=== PATIENT | female | born 1945 | race Caucasian/White ===

== ENCOUNTER → 2017-01-23 | Outpatient (CLI) | payer BC ==
[~2017-01-23] MED LIST: AGM875 PO; ALL100 PO; CALCTAB5 PO; GFNSR600 PO; NASOCORT; SYN88 PO; [UNRECOGNIZED DRUG - OTHER]
--- NOTE | 2017-01-23 14:58 | MAMMOGRAPHY REPORT ---
BILATERAL DIGITAL SCREENING MAMMOGRAM WITH CAD: 01/23/2017 CLINICAL HISTORY: Routine screening. Patient has no complaints. TECHNIQUE: Current study was also evaluated with a Computer Aided Detection (CAD) system. Bilatera l CC and MLO views were obtained. COMPARISON: Comparison is made to exams dated: 07/04/2013 mammogram - [facility], 03/08/2009, and 12/27/2007. BREAST COMPOSITION: The tissue of both breasts is almost entirely fatty. FINDINGS: No suspicious masses, calcifications, or areas of architectural distortion are noted in e ither breast. There has been no significant interval change compared to prior exams. Scattered bilat eral benign-appearing calcifications are not significantly changed. IMPRESSION: ACR BI-RADS CATEGORY 2: BENIGN There is no mammographic evidence of malignancy. A 1 year screening mammogram is recommended. The p atient will receive written notification of the results. Approximately 10% of breast cancers are not detected with mammography. A negative mammographic repor t should not delay biopsy if a clinically suggestive mass is present. Cait Vogel M.D. ah/:01/23/2017 12:19:02 [employer]: Zahra COVINGTON(Alex)(Chiquis), [facility] letter sent: Normal 1/2 BI-RADS Code: ACR BI-RADS Category 2: Benign
== END | disposition home or self-care (01) ==
LOC: C.MAMM 11:42
PROVIDERS: ATTEND Family Medicine
DX: Z12.31 Encounter for screening mammogram for malignant neoplasm of breast (principal)

== ENCOUNTER → 2017-06-22 | Outpatient (CLI) | payer BC ==
[~2017-06-22] MED LIST changes: +OPTIRAY 320 IV PRN
--- NOTE | 2017-06-22 13:54 | DIAGNOSTIC IMAGING REPORT ---
ABDOMINAL CT WITH AND WITHOUT INTRAVENOUS CONTRAST, RENAL PROTOCOL HISTORY: Follow-up renal lesions. TECHNIQUE: Multiaxial CT images of the abdomen were performed both before and after the intravenous administration of contrast to evaluate the kidneys. COMPARISON STUDY: Abdomen and pelvis CT 04/18/2013. FINDINGS: There are 2 punctate stones within the upper pole the left kidney. No right renal calculi. No hydronephrosis. There again noted two fat containing lesions within the lower pole of the right kidney which measure 2.0 and 0.8 cm. These are consistent with benign angiomyolipomas. Multiple left peripelvic renal cysts remain unchanged. There is a new 1.5 cm left adrenal gland nodule. However, this may also contain macroscopic fat and therefore favors a benign lesion such as a myelolipoma versus an adenoma. The liver, gallbladder, spleen, right adrenal gland, and pancreas are unremarkable. No retroperitoneal lymphadenopathy. The visualized appendix is unremarkable. A few colonic diverticula. No bowel wall thickening or obstruction. IMPRESSION: 1. Stable benign angiomyolipomas within the right kidney. 2. Left-sided nephrolithiasis. No hydronephrosis. 4. A new 1.5 cm left adrenal gland nodule. This is consistent with a benign lesion and may represent a myelolipoma versus adenoma. Electronically signed by: Mamadou Gordon M.D. 06/22/2017 1:52 PM Dictated Date/Time: 06/22/2017 1:45 PM
[2017-06-22 14:53] LABS: ALT/SGPT 19 U/L (12-78); BLOOD UREA NITROGEN 13 mg/dl (7-18); BUN/CREATININE RATIO 20.2 (10-20); CALCIUM 9.2 mg/dl (8.5-10.1); CARBON DIOXIDE 25 mmol/L (21-32); CHLORIDE 107 mmol/L (98-107); CREATININE 0.64 mg/dl (0.60-1.20); GLUCOSE 77 mg/dl (70-99); POTASSIUM 4.2 mmol/L (3.5-5.1); SODIUM 140 mmol/L (136-145)
[2017-06-22 14:56] LABS: ALKALINE PHOSPHATASE 69 U/L (45-117); AST/SGOT 18 U/L (15-37)
== END | disposition home or self-care (01) ==
LOC: C.CTS 12:33
PROVIDERS: ATTEND Urology
DX: D49.519 Neoplasm of unspecified behavior of unspecified kidney (principal)

== ENCOUNTER → 2017-11-15 | Outpatient (CLI) | payer BC ==
[~2017-11-15] MED LIST changes: -OPTIRAY 320 IV PRN
[2017-11-15 15:26] LABS: BASO % 0.2 %; BASO ABS # 0.01 K/uL (0-0.2); EOS ABS # 0.12 K/uL (0-0.5); HEMATOCRIT 43.2 % (37-47); HEMOGLOBIN 14.8 g/dL (12.0-16.0); IG# 0.06 K/uL (0.00-0.02); LYMPH % 25.6 %; LYMPH ABS # 1.51 K/uL (1.2-3.4); MEAN CELL VOLUME 96.2 fL (80-100); MEAN CORPUSCULAR HGB CONC 34.3 g/dl (32-36); MEAN PLATELET VOLUME 11.1 fL (7.4-10.4); MONO % 10.9 %; MONO ABS # 0.64 K/uL (0.11-0.59); NEUT % 60.3 %; NEUT ABS # 3.55 K/uL (1.4-6.5); PLATELET COUNT 187 K/uL (130-400); RED CELL DISTRIBUTION WIDTH CV 12.7 % (11.5-14.5); RED CELL DISTRIBUTION WIDTH SD 44.1 fL (36.4-46.3); WHITE BLOOD COUNT 5.89 K/uL (4.8-10.8)
--- NOTE | 2017-11-15 15:45 | DIAGNOSTIC IMAGING REPORT ---
LUMBAR SPINE 5 VIEWS HISTORY: DORSALGIA, BACK PAIN COMPARISON: None. FINDINGS: There is no fracture. There is 4 mm of anterolisthesis of L4 on L5. Mild disc space narrowing at L4-L5, L1-L2, L2-L3. Mild degenerative disease within the lower thoracic spine. 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 The bones are osteopenic. The sacrum appears intact. IMPRESSION: No fracture within the lumbar spine. Degenerative changes as described above. Electronically signed by: Mamadou Gordon M.D. 11/15/2017 3:44 PM Dictated Date/Time: 11/15/2017 3:41 PM
== END | disposition home or self-care (01) ==
LOC: C.RAD 14:52
PROVIDERS: ATTEND Family Medicine
DX: M54.9 Dorsalgia, unspecified (principal)